=== PATIENT | female | born 1980 | race Two or more races ===

== ENCOUNTER → 2021-08-21 | Outpatient (CLI) | payer MEDICAID | END | disposition home or self-care (01) | LOC: Rad HDHVI 12:58 | PROVIDERS: ATTEND Internal Medicine Cardiovascular Disease | DX: R00.2 Palpitations (principal); R06.02 Shortness of breath | CPT/HCPCS: 93306 ==

== ENCOUNTER → 2021-12-14 | Outpatient (CLI) | payer MEDICAID ==
[~2021-12-14] MED LIST: HYDR-4188 PO
[2021-12-14 10:50] VITALS: BP 106/63
[2021-12-14 11:12] VITALS: BP 122/80
[2021-12-14 12:08] LABS: Potassium 3.7 mmol/L (3.5-5.1)
[2021-12-14 12:11] LABS: BUN/Creatinine Ratio 14.1
[2021-12-14 12:15] LABS: Basophils # (auto) 0 10 ^3/uL (0-0.2); Basophils % (auto) 0.5 % (0.0-2.0); Eosinophils # (auto) 0.1 10 ^3/uL (0-0.8); Eosinophils % (auto) 1.7 % (0.0-7.0); Hematocrit 38.4 % (36.0-46.0); Hemoglobin 13.5 g/dL (12.2-16.2); Lymphocytes # (auto) 1.1 10 ^3/uL (0.4-5.4); Lymphocytes % (auto) 17.3 % (10.0-50.0); Mean Corpuscular Hemoglobin 33.5 pg (28.0-32.0); Mean Corpuscular Hgb Conc. 35.1 g/dL (32.0-36.0); Mean Corpuscular Volume 95.6 fL (80.0-100.0); Monocytes # (auto) 0.4 10 ^3/uL (0-1.3); Monocytes % (auto) 5.9 % (0.0-12.0); Neutrophils # (auto) 4.9 10 ^3/uL (1.6-8.6); Neutrophils % (auto) 74.6 % (37.0-80.0); Red Blood Cells 4.02 10^6/uL (4.0-5.20); Red Cell Distribution Width 12.7 % (11.8-14.3); White Blood Cell 6.6 10^3/uL (4.4-10.8)
[2021-12-14 12:33] LABS: INR 0.99 (0.9-1.15); Partial Thromboplastin Time 27.3 sec (23.6-33.0)
== END | disposition home or self-care (01) ==
LOC: Rad HDHVI 10:38
PROVIDERS: ATTEND Internal Medicine Cardiovascular Disease
DX: Z01.812 Encounter for preprocedural laboratory examination (principal); I11.0 Hypertensive heart disease with heart failure; I34.1 Nonrheumatic mitral (valve) prolapse; I50.9 Heart failure, unspecified; R06.02 Shortness of breath
CPT/HCPCS: 36415; 71046; 80048; 85025; 85610; 85730; 93005; G0463

== ENCOUNTER 2021-12-17 07:54 | Day surgery (SDC) | payer MEDICAID ==
[~2021-12-17] VITALS: Ht 180.3 cm; Wt 79.4 kg
[2021-12-17] MEDS ORDERED: fentaNYL CITRATE 100 MCG/2 ML VL ONE (08:39)
[2021-12-17] MEDS ORDERED: ANGIOMAX 250 MG VIAL IV ONE (08:39)
[2021-12-17] MEDS ORDERED: LIDOCAINE 2%HCL (LOCAL ANESTH.) INJ 10ml MDV ONE (08:40)
[2021-12-17] MEDS ORDERED: SODIUM CHL 0.9% 0 ML ONE (08:40)
[2021-12-17] MEDS ORDERED: MIDAZOLAM HCL 2MG/2ML 2ml VIAL (1mg/ml) ONE (08:40)
[2021-12-17] MEDS ORDERED: IOHEXOL 350 MG/ML 100ML IJ ONE (08:40)
[2021-12-17] MEDS ORDERED: HEPARIN IN NS 1000Units/500mL 1,500 ML ONE (08:44)
== END 2021-12-17 11:50 | disposition home or self-care (01) ==
LOC: CATH 07:54
PROVIDERS: ATTEND Internal Medicine Cardiovascular Disease
DX: R94.39 Abnormal result of other cardiovascular function study (principal); I10 Essential (primary) hypertension; Z87.891 Personal history of nicotine dependence; Z20.822 Contact with and (suspected) exposure to COVID-19
CPT/HCPCS: 36221; 75625; 93458; C1760; C1894; J1644; J2001; J2250; J3010; J7030; Q9967; U0003; 99152